=== PATIENT | male | born 1950 | race Caucasian/White ===

== ENCOUNTER 2016-04-25 10:16 | Day surgery (SDC) | payer BC ==
[~2016-04-25] VITALS: Ht 175.3 cm; Wt 72.2 kg
--- NOTE | 2016-05-05 11:38 | OR ---
ADMIT: 04/25/2016 RM/LOC: [facility] MR#: [id number] [facility]#: [id number] [address] [id number] [address] [place] [address] Operative/Delivery Room Report SEX: M AGE: 66 : 1950 SURGERY DATE: 04/25/2016 SURGEON: Jace Herrera MD PREOPERATIVE DIAGNOSES: 1. Symptomatic right distal ureteral calculus. 2. History of transitional cell carcinoma of the bladder. POSTOPERATIVE DIAGNOSES: 1. Symptomatic right distal ureteral calculus. 2. History of transitional cell carcinoma of the bladder without evidence of tumor recurrence. PROCEDURES: 1. Diagnostic cystoscopy. 2. Right retrograde pyelogram. 3. Right ureteroscopy, holmium laser lithotripsy, stone basket extraction, and right ureteral stent placement. ANESTHESIA: General. INDICATION: The patient is a pleasant white male, who presents today with a symptomatic right distal ureteral calculus, also has a history of transitional cell carcinoma of bladder. He is taken for the above-mentioned procedures. Risks and benefits have been discussed. Preoperative antibiotics given. DESCRIPTION OF PROCEDURE: The patient was taken to OR #5, placed on the table in supine position. After adequate anesthesia, transferred to dorsal lithotomy position, prepped and draped in the usual sterile fashion. A time- out was taken for patient name, date of , planned procedure, preoperative antibiotics and allergies. A 22-Macedonian cystoscope with 30-degree lens advanced to the level of bladder. The urethra was unremarkable. Prostate is absent. Bladder neck is open. Each ureteral orifice was visualized, in normal position. The area of previous resection noted without any evidence of local recurrence. No other suspicious erythema, stones, bladder tumor, or foreign body noted. A 70- degree lens was then placed. Dome of bladder and bladder neck inspected, likewise free of lesions. No evidence of recurrent tumor. The 30 degree lens was then replaced. Eight-Macedonian cone-tipped catheter was used to create a retrograde pyelogram, which demonstrates a fairly narrow intramural tunnel, filling defect consistent with stone. Moderate dilatation of the proximal collecting system. I did go ahead and pass an angle tipped Glidewire through the cystoscope; however, this would not go past the level stone; therefore, the cystoscope and guidewire were removed. A semirigid ureteroscope was then advanced to level of the right ureteral orifice with the increased axial rigidity. I was able to negotiate the wire ADMIT: 04/25/2016 RM/LOC: [facility] MR#: [id number] [address] [address] [address] [address] Operative/Delivery Room Report SEX: M AGE: 66 : 1950 past the level of the stone in the upper collecting system. The ureteroscope was removed and the guidewire secured with a safety wire. A semirigid ureteroscope was then advanced back into the bladder. I did use a secondary guidewire in train track technique, able to access distal ureter, the stone was visualized. A 400-micron holmium laser fiber with settings of 800 mJ and 8 Hz, the stone was fragmented. Zero tip stone basket was then used to retrieve all stone fragments from the ureteral lumen. These were deposited in the bladder. On final pass of the ureteroscope, there was just some fine stone debris. Quite a bit of inflammation where the stone had been impacted, and through the intramural tunnel, I did inject contrast outlining a fairly tortuous proximal ureter and dilation of the right renal pelvis where guidewire was confirmed to be within the renal pelvis. The ureteroscope was removed. The indwelling safety wire was backloaded through the cystoscope. Cystoscope advanced to level of the bladder. Under direct fluoroscopic visualization, a 6-Macedonian 26 cm double-J stent was placed. Proximal tip of the stent ended up in the lower pole calyx. I had a nice curl within the urinary bladder. Brisk efflux of urine from the drainage ports within the bladder. All stone fragments were retrieved from the bladder and sent for pathological analysis. The bladder was decompressed. The scope withdrawn. The patient taken out of dorsal lithotomy position, extubated uneventfully, and transferred to recovery room in stable condition. DISPOSITION: The patient will be discharged home later on today. DISCHARGE MEDICATIONS: Include: 1. Cipro 500 mg 1 p.o. b.i.d. for 10 days. 2. Pyridium 200 mg 1 p.o. t.i.d. p.r.n., dispensed #20. 3. Lortab 5/325, 1 to 2 every 4 to 6 hours as needed for pain. I will see the patient back in approximately 5 to 7 days for cystoscopy and stent removal. I will have a KUB done prior to this visit as he does have a left renal calculus, which we may elect to treat with ESWL. Jace Herrera MD/ brenna JOB #: [id number] CC: Jace Herrera, Attending Physician [place], Family Physician
== END 2016-04-25 14:36 | disposition home or self-care (01) ==
LOC: SSS 10:16
PROC: 0TF68ZZ Fragmentation in Right Ureter, Via Natural or Artificial Opening Endoscopic (ICD-10-PCS; principal; 2016-04-25)
PROC: 0T768DZ Dilation of Right Ureter with Intraluminal Device, Via Natural or Artificial Opening Endoscopic (ICD-10-PCS; principal; 2016-04-25)
PROC: BT1DYZZ Fluoroscopy of Right Kidney, Ureter and Bladder using Other Contrast (ICD-10-PCS; principal; 2016-04-25)
DX: N20.2 Calculus of kidney with calculus of ureter (principal); E11.9 Type 2 diabetes mellitus without complications; Z85.46 Personal history of malignant neoplasm of prostate; Z85.51 Personal history of malignant neoplasm of bladder; Z79.899 Other long term (current) drug therapy

== ENCOUNTER → 2016-04-29 | Outpatient (CLI) | payer BC | END | disposition home or self-care (01) | LOC: RAD.S 08:15 | DX: N20.1 Calculus of ureter (principal); K59.00 Constipation, unspecified; Z96.0 Presence of urogenital implants ==